=== PATIENT | female | born 1995 | race Two or more races ===

== ENCOUNTER 2019-03-01 11:36 | Emergency (ER) | payer OTHER ==
[~2019-03-01] VITALS: Ht 170.2 cm; Wt 43.5 kg
[2019-03-01 11:48] VITALS: BP 108/73
--- NOTE | 2019-03-01 11:48 | NUR ---
PT BIB SELF FROM URGENT CARE C/O LOWER BACK PAIN, S/P FALL YESTERDAY FROM ROLLER SKATING, NOTED COCCYX FRACTURE, PT IS AAOX4, NOT IN RESPIRATORY DISTRESS, V/S STABLE, KEPT RESTED AND COMFORTABLE, AWAITING ER MD FOR EVAL.
--- NOTE | 2019-03-01 12:28 | NUR ---
DENNIS HERNÁNDEZ [employer]ER AT BEDSIDE FOR EVAL.
--- NOTE | 2019-03-01 12:59 | NUR ---
Patient discharged to home in stable condition. Written and verbal after care instructions given. Patient verbalizes understanding of instruction.
== END 2019-03-01 13:01 | disposition home or self-care (01) ==
LOC: ER 11:49
DX: S32.2XXA Fracture of coccyx, initial encounter for closed fracture (principal); W18.39XA Other fall on same level, initial encounter; Y93.51 Activity, roller skating (inline) and skateboarding; Y92.331 Roller skating rink as the place of occurrence of the external cause; Y99.8 Other external cause status